=== PATIENT | female | born 1965 | race African-American/Black ===

== ENCOUNTER 2018-09-27 12:18 | Emergency (ER) | payer MEDICARE, MEDICAID ==
[~2018-09-27] VITALS: Ht 149.9 cm; Wt 70.9 kg
[~2018-09-27 12:18] MED LIST: ALPR1TAB6 PO; CITA20TA6 PO; DAPS60GE TP; GABA-689 PO; HYDR-2765 PO; HYDR200T5 PO; LAMI1TAB2 PO; LANS30TA6 PO; LEVE500T6 PO; LIDO700A4 TP; LOPI1TAB2 PO; MIDO2.5T PO; OLAN10TA9 PO; OLAN20TA3 PO; PROC5TAB14 PO; SIMV20TA3 PO; SULF500T7 PO; TOPI50TA8 PO; ZOLP10TA4 PO
--- NOTE | 2018-09-27 13:19 | RAD ---
Chest, PA and Lateral: Technique: PA and lateral views of the chest were obtained. History: Chest pain. Comparison: 09/13/2014. Findings: The heart and pulmonary vasculature appear within normal limits. The lungs are clear. The pleural margins are clear. Impression: No acute chest process is seen. Electronically signed by: Tomas Arguello MD (09/27/2018 1:16 PM) [facility]
[2018-09-27 13:23] LABS: BASO % 0 % (0-3); EOS % 1 % (0-3); HEMATOCRIT 36.1 % (36.0-47.0); HEMOGLOBIN 11.5 g/dL (12.0-15.5); LYMPH # 0.9 x10^3/uL (1.0-4.8); LYMPH % 17 % (24-48); MEAN CORPUSCULAR HEMOGLOBIN 26 pg (25-35); MEAN CORPUSCULAR HGB CONC 32 g/dL (31-37); MEAN CORPUSCULAR VOLUME 80 fL (79-100); MONO # 0.3 x10^3/uL (0.0-1.1); MONO % 5 % (0-9); NEUT % 77 % (31-73); PLATELET COUNT 208 x10^3/uL (140-400); RED BLOOD COUNT 4.51 x10^6/uL (3.50-5.40); RED CELL DISTRIBUTION WIDTH 16.4 % (11.5-14.5); WHITE BLOOD COUNT 5.2 x10^3/uL (4.0-11.0)
--- NOTE | 2018-09-27 13:30 | PHYS DOC ---
Past Medical History Past Medical History: Anxiety, Bipolar, Depression, Diabetes-Type II, Fibromyalgia, Seizure, Other Additional Past Medical Histor: HIV, chronic pelvic and leg pain Past Surgical History: Hysterectomy, Knee Replacement Additional Past Surgical Histo: Bilateral knees. Alcohol Use: None Drug Use: None Adult General Chief Complaint Chief Complaint: CHEST PAIN HPI HPI Patient is a 53 year old female who presents with complaining of right sided chest pain. Patient complaining of intermittent episodes of right-sided chest pain for the last 2 months that getting constant since yesterday. Patient states the pain is sharp pain with radiation to her back and associated with shortness of breath and rated her pain 7/10. She denies nausea, palpitation, dizziness, focal neuro deficit, injury, history of DVT and PE. Patient states she feels the pain is in her breasts and wants test for her breasts. Patient has history of diabetes and family history of coronary artery disease. Review of Systems Review of Systems Constitutional: Denies fever or chills [] Eyes: Denies change in visual acuity, redness, or eye pain [] HENT: Denies nasal congestion or sore throat [] Respiratory: Denies cough, reports shortness of breath [] Cardiovascular: No additional information not addressed in HPI [] GI: Denies abdominal pain, nausea, vomiting, bloody stools or diarrhea [] : Denies dysuria or hematuria [] Musculoskeletal: Denies back pain or joint pain [] Integument: Denies rash or skin lesions [] Neurologic: Denies headache, focal weakness or sensory changes [] Endocrine: Denies polyuria or polydipsia [] All other systems were reviewed and found to be within normal limits, except as documented in this note. Current Medications Current Medications Current Medications Medications (Trade) Dose Ordered Sig/Alka Start Time Stop Time Status Last Admin Dose Admin Acetaminophen/ Hydrocodone Bitart (Lortab 5/325) 1 tab 1X ONCE 09/27/18 14:45 09/27/18 14:46 DC 09/27/18 15:12 1 TAB Info (CONTRAST GIVEN -- Rx MONITORING) 1 each PRN DAILY PRN 09/27/18 14:30 09/27/18 15:50 DC Iohexol (Omnipaque 350 Mg/ml) 100 ml 1X ONCE 09/27/18 14:30 09/27/18 14:31 DC Ketorolac Tromethamine (Toradol 30mg Vial) 30 mg 1X ONCE 09/27/18 14:15 09/27/18 14:16 DC 09/27/18 14:18 30 MG Allergies Allergies Allergies Coded Allergies Type Severity Reaction Last Updated Verified amoxicillin Allergy Intermediate Rash 05/27/14 No Physical Exam Physical Exam Constitutional: Well nourished, mild distress, non-toxic appearance. [] HENT: Normocephalic, atraumatic, oropharynx moist. Eyes: PERRLA, EOMI, conjunctiva normal, no discharge. [] Neck: Normal range of motion, no tenderness, supple, no stridor. [] Cardiovascular:Heart rate regular rhythm, no murmur [] Lungs & Thorax: Bilateral breath sounds clear to auscultation , right chest wall reproducible pain, bilateral breast exam did not show any palpable masses.[] Abdomen: Bowel sounds normal, soft, no tenderness, no masses, no pulsatile masses. [] Skin: Warm, dry, no erythema, no rash in right breast and left hemithorax up to midline with small blister matching with herpetic rash Back: No tenderness, no CVA tenderness. [] Extremities: No tenderness, no cyanosis, no clubbing, ROM intact, no edema. [] Neurologic: Alert and oriented X 3, normal motor function, normal sensory function, no focal deficits noted. [] Psychologic: Affect normal, judgement normal, mood normal. [] Current Patient Data Vital Signs Vital Signs Date Time Temp Pulse Resp B/P (MAP) Pulse Ox O2 Delivery O2 Flow Rate FiO2 09/27/18 15:30 72 18 117/76 (90) 97 Room Air 09/27/18 12:20 97.9 97.9 Lab Values Laboratory Tests Test 09/27/18 13:00 White Blood Count 5.2 x10^3/uL (4.0-11.0) Red Blood Count 4.51 x10^6/uL (3.50-5.40) Hemoglobin 11.5 g/dL (12.0-15.5) L Hematocrit 36.1 % (36.0-47.0) Mean Corpuscular Volume 80 fL (79-100) Mean Corpuscular Hemoglobin 26 pg (25-35) Mean Corpuscular Hemoglobin Concent 32 g/dL (31-37) Red Cell Distribution Width 16.4 % (11.5-14.5) H Platelet Count 208 x10^3/uL (140-400) Neutrophils (%) (Auto) 77 % (31-73) H Lymphocytes (%) (Auto) 17 % (24-48) L Monocytes (%) (Auto) 5 % (0-9) Eosinophils (%) (Auto) 1 % (0-3) Basophils (%) (Auto) 0 % (0-3) Neutrophils # (Auto) 4.0 x10^3uL (1.8-7.7) Lymphocytes # (Auto) 0.9 x10^3/uL (1.0-4.8) L Monocytes # (Auto) 0.3 x10^3/uL (0.0-1.1) Eosinophils # (Auto) 0.0 x10^3/uL (0.0-0.7) Basophils # (Auto) 0.0 x10^3/uL (0.0-0.2) Prothrombin Time 13.9 SEC (11.7-14.0) Prothrombin Time INR 1.1 (0.8-1.1) D-Dimer (Lore) 1.18 ug/mlFEU (0.00-0.50) H Sodium Level 138 mmol/L (136-145) Potassium Level 3.6 mmol/L (3.5-5.1) Chloride Level 102 mmol/L (98-107) Carbon Dioxide Level 25 mmol/L (21-32) Anion Gap 11 (6-14) Blood Urea Nitrogen 4 mg/dL (7-20) L Creatinine 1.1 mg/dL (0.6-1.0) H Estimated GFR (Cockcroft-Gault) 63.4 BUN/Creatinine Ratio 4 (6-20) L Glucose Level 113 mg/dL (70-99) H Calcium Level 9.1 mg/dL (8.5-10.1) Magnesium Level 1.7 mg/dL (1.8-2.4) L Total Bilirubin 0.3 mg/dL (0.2-1.0) Aspartate Amino Transferase (AST) 33 U/L (15-37) Alanine Aminotransferase (ALT) 24 U/L (14-59) Alkaline Phosphatase 113 U/L (46-116) Creatine Kinase 150 U/L (26-192) Troponin I Quantitative < 0.017 ng/mL (0.000-0.055) SI-Pvp-P-Type Natriuretic Peptide 52 pg/mL (0-124) Total Protein 8.6 g/dL (6.4-8.2) H Albumin 3.7 g/dL (3.4-5.0) Albumin/Globulin Ratio 0.8 (1.0-1.7) L Lipase 68 U/L (73-393) L Laboratory Tests 09/27/18 13:00 Laboratory Tests 09/27/18 13:00 EKG EKG EKG interpreted by me. EKG at 1227 showed sinus tachycardia at rate of 101, low voltage QRS, normal OH and QT intervals, poor R-wave progress in anteroseptal leads, no acute ST and T-wave abnormalities. Radiology/Procedures Radiology/Procedures [address] [id number] IMAGING REPORT Signed PATIENT: PHILLIP GONZALEZ ACCOUNT: [id number] : 1965 LOCATION: ER AGE: 53 SEX: F EXAM STATUS: REG ER ORD. PHYSICIAN: VIJAYA OLIVAREZ MD REASON: chest pain PROCEDURE: CHEST PA & LATERAL Chest, PA and Lateral: Technique: PA and lateral views of the chest were obtained. History: Chest pain. Comparison: 09/13/2014. Findings: The heart and pulmonary vasculature appear within normal limits. The lungs are clear. The pleural margins are clear. Impression: No acute chest process is seen. Electronically signed by: Tomas Arguello MD (09/27/2018 1:16 PM) [facility] DICTATED and SIGNED BY: TOMAS ARGUELLO MD DATE: 09/27/[address] [id number] IMAGING REPORT Signed PATIENT: PHILLIP GONZALEZ ACCOUNT: [id number] : 1965 LOCATION: ER AGE: 53 SEX: F EXAM STATUS: REG ER ORD. PHYSICIAN: VIJAYA OLIVAREZ MD REASON: right-sided chest pain PROCEDURE: ABDOMEN LTD Examination: Ultrasound abdomen limited HISTORY: History of right-sided pain COMPARISON: 08/28/2013 FINDINGS: The pancreas is not well-visualized. The echogenicity liver grossly appears unremarkable. The liver length measures 13 cm. The visualized aorta, IVC within normal limits of dimension. No evidence of gallstones identified. The gallbladder wall thickness measures 2 mm. There is positive ultrasonographic evidence of Pitts's sign. No evidence of pericholecystic fluid or gallbladder wall thickening identified. In the right kidney measures 9.1 cm in length. IMPRESSION: No obvious gallstones evident. Examination is positive for ultrasonographic evidence of Pitts's sign, however no evidence of pericholecystic fluid or gallbladder wall thickening identified to suggest acute cholecystitis. Electronically signed by: Tomas Arguello MD (09/27/2018 2:21 PM) [facility] DICTATED and SIGNED BY: TOMAS ARGUELLO MD DATE: 09/27/18 142 Course & Med Decision Making Course & Med Decision Making Pertinent Labs and Imaging studies reviewed. (See chart for details) Evaluation of patient in ER showed 53-year-old female patient with complaining of intermittent episodes of right-sided chest pain that getting constant since yesterday. Patient had a herpetic rash and right breast and posterior hemithorax and stated she had the rash since yesterday. D-dimer was mildly elevated because of infection with no concern for PE. Patient treated with Toradol and Vicodin and felt better. Prescription for acyclovir and Levaquin was given and patient was advised to follow up with her infectious disease specialist regarding HIV and episode of shingles. I've spoken with the patient and/or caregivers. I've explained the patient's condition, diagnosis and treatment plan based on information available to me at this time. I've answered the patient's and/or caregivers questions and addressed any concerns. The patient and/or caregivers have a good understanding the patient's diagnosis, condition and treatment plan as can be expected at this point. Vital signs have been stabilized. The patient's condition is stable for discharge from the emergency department. The patient will pursue further outpatient evaluation with her primary care provider or other designated consulting physician as outlined in the discharge instructions. Patient and/or caregivers are agreeable to this plan of care and follow-up instructions have been explained in detail. The patient and/or caregivers have received these instructions in written format and expressed understanding of these discharge instructions. The patient and her caregivers are aware that if any significant change in condition or worsening of symptoms should prompt him to immediately return to this of the closest emergency department. If an emergent department is not readily available I would encourage him to call 911. Dragon Disclaimer Dragon Disclaimer This electronic medical record was generated, in whole or in part, using a voice recognition dictation system. Departure Departure Impression: Primary Impression: Shingles Additional Impressions: Right-sided chest wall pain Elevated d-dimer HIV (human immunodeficiency virus infection) Anemia Hypomagnesemia Disposition: HOME, SELF-CARE (at 1551) Condition: IMPROVED Referrals: RYANN HAND MD (PCP) Patient Instructions: Hypomagnesemia, Shingles Additional Instructions: Follow-up with your infectious diseases specialist Dr. Starr in 2 or 3 days Follow-up with your primary care physician in 3-5 days Return to ER if not getting better Scripts Hydrocodone/Apap 5-325 (NORCO 5-325 TABLET) 1 Each Tablet 1 TAB PO PRN Q6HRS PRN for PAIN, #14 TAB 0 Refills Prov: VIJAYA OLIVAREZ MD 09/27/18 Acyclovir (ACYCLOVIR) 800 Mg Tablet 1 TAB PO Q8HRS, #15 TAB Prov: VIJAYA OLIVAREZ MD 09/27/18 Problem Qualifiers Primary Impression: Shingles Herpes zoster complications: without complications Qualified Codes: B02.9 - Zoster without complications Additional Impressions: HIV (human immunodeficiency virus infection) HIV symptom status: asymptomatic Qualified Codes: Z21 - Asymptomatic human immunodeficiency virus [hiv] infection status Anemia Anemia type: unspecified type Qualified Codes: D64.9 - Anemia, unspecified VIJAYA OLIVAREZ MD September 27, 2018 13:30
[2018-09-27 13:31] LABS: PROTHROMBIN TIME PATIENT 13.9 SEC (11.7-14.0)
[2018-09-27 13:35] LABS: CALCIUM 9.1 mg/dL (8.5-10.1); CREATININE 1.1 mg/dL (0.6-1.0); GFR 63.4; POTASSIUM 3.6 mmol/L (3.5-5.1)
[2018-09-27 13:41] LABS: D-DIMER 1.18 ug/mlFEU (0.00-0.50)
[2018-09-27 13:42] LABS: ALBUMIN 3.7 g/dL (3.4-5.0); ALBUMIN/GLOBULIN RATIO 0.8 (1.0-1.7); MAGNESIUM 1.7 mg/dL (1.8-2.4); TOTAL BILIRUBIN 0.3 mg/dL (0.2-1.0); TOTAL PROTEIN 8.6 g/dL (6.4-8.2)
[2018-09-27] MEDS ORDERED: KETOROLAC 30 MG/ML VIAL. IV ONE (14:15)
--- NOTE | 2018-09-27 14:23 | RAD ---
Examination: Ultrasound abdomen limited HISTORY: History of right-sided pain COMPARISON: 08/28/2013 FINDINGS: The pancreas is not well-visualized. The echogenicity liver grossly appears unremarkable. The liver length measures 13 cm. The visualized aorta, IVC within normal limits of dimension. No evidence of gallstones identified. The gallbladder wall thickness measures 2 mm. There is positive ultrasonographic evidence of Pitts's sign. No evidence of pericholecystic fluid or gallbladder wall thickening identified. In the right kidney measures 9.1 cm in length. IMPRESSION: No obvious gallstones evident. Examination is positive for ultrasonographic evidence of Pitts's sign, however no evidence of pericholecystic fluid or gallbladder wall thickening identified to suggest acute cholecystitis. Electronically signed by: Tomas Arguello MD (09/27/2018 2:21 PM) [facility]
[2018-09-27] MEDS ORDERED: CONTRAST GIVEN. MC PRN (14:30)
[2018-09-27] MEDS ORDERED: IOHEXOL 350 MG/ML 100 ML VIAL. IV ONE (14:30)
[2018-09-27] MEDS ORDERED: HYDROcodone/APAP 5/325MG 1 TAB TABLET PO ONE (14:45)
[2018-09-27 15:30] VITALS: BP 117/76
[2018-09-27] MEDS ORDERED: ACYC800T PO (15:33)
[2018-09-27] MEDS ORDERED: HYDR-3164 PO (15:33)
--- NOTE | 2018-09-28 11:06 | EKG ---
[facility] [address] [place] [address] Test Date: 2018-09-27 Test Time: 12:27:09 Pat Name: PHILLIP GONZALEZ Department: Room: Gender: F [employer] [place]: : 1965 Requested By: VIJAYA OLIVAREZ Order Number: [id number] Reading MD: Addison Ortiz Measurements Intervals [place] Rate: 101 P: 53 MT: 164 QRS: 36 QRSD: 68 T: 35 QT: 310 QTc: 407 Interpretive Statements SINUS TACHYCARDIA LOW LIMB LEAD VOLTAGE T ABNORMALITY IN ANTERIOR LEADS NON SPECIFIC ST DEPRESSION Electronically Signed On 10-17-2018 12:41:44 CDT by Addison Ortiz
== END 2018-09-27 15:31 | disposition home or self-care (01) ==
LOC: ER 12:18
DX: R07.89 Other chest pain (principal); D64.9 Anemia, unspecified; E83.42 Hypomagnesemia; B02.9 Zoster without complications; R79.1 Abnormal coagulation profile; Z21 Asymptomatic human immunodeficiency virus [HIV] infection status; F31.9 Bipolar disorder, unspecified; E11.9 Type 2 diabetes mellitus without complications; Z90.710 Acquired absence of both cervix and uterus; G89.29 Other chronic pain; Z88.1 Allergy status to other antibiotic agents
CPT/HCPCS: 36415; 71046; 76705; 80053; 82550; 83690; 83735; 83880; 84484; 85025; 85379; 85610; 93005; 96374; 99285; J1885

== ENCOUNTER 2019-05-27 17:59 | Emergency (ER) | payer MEDICAID, MEDICARE ==
[~2019-05-27] VITALS: Ht 149.9 cm; Wt 64.4 kg
[~2019-05-27 17:59] MED LIST changes: +ACYC800T PO; +HYDR-3164 PO; +SIMV20TA18 PO; -SIMV20TA3 PO
[2019-05-27 18:38] VITALS: BP 113/69
[2019-05-27] MEDS ORDERED: METOCLOPRAMIDE HCL 10 MG/2 ML VIAL. IVP ONE (19:00)
[2019-05-27] MEDS ORDERED: IV NORMAL SALINE 1000ML BAG 1,000 ML IV ONE (19:00)
--- NOTE | 2019-05-27 20:20 | RAD ---
INDICATION: Dizziness COMPARISON: None. TECHNIQUE: Axial CT images obtained through the head without intravenous contrast. One or more of the following individualized dose reduction techniques were utilized for this examination: 1. Automated exposure control; 2. Adjustment of the mA and/or kV according to patient size; 3. Use of iterative reconstruction technique. FINDINGS: No intracranial hemorrhage. No midline shift. Basal cisterns patents. Subdural space is prominent frontally measuring up to approximately 10 mm in thickness. No acute osseous abnormality. Orbits and paranasal sinuses unremarkable. Scattered foci of low attenuation within the white matter. IMPRESSION: 1. No acute intracranial hemorrhage. 2. Scattered regions of low attenuation within the white matter. Non-specific in nature but frequently secondary to chronic small vessel ischemic disease. 3. Prominence of ventricles and sulci which is frequently secondary to age related volume loss. There is also prominence of the subdural space frontally. This could be secondary to focal volume loss or chronic subdural hygroma. Electronically signed by: Jamal Orozco MD (05/27/2019 8:16 PM) [facility]
[2019-05-27] MEDS ORDERED: PROC10TA57 PO (20:44)
--- NOTE | 2019-05-27 20:44 | PHYS DOC ---
Past Medical History Past Medical History: Anxiety, Bipolar, Depression, Diabetes-Type II, Fib romyalgia, Seizure, Other Additional Past Medical Histor: HIV, chronic pelvic and leg pain Past Surgical History: Hysterectomy, Knee Replacement Additional Past Surgical Histo: Bilateral knees. Alcohol Use: None Drug Use: None Adult General Chief Complaint Chief Complaint: HEADACHE HPI HPI Patient is a 54 year old male with history of HIV and migraine headaches who presents with typical migraine headache starting several hours prior to ED arrival. Headache is retro-orbital dull and throbbing. It is rated moderate to severe and is worse with activity and light. Patient reports nausea without vomiting. No neck pain fever or rash. No extremity weakness or loss of sensation. Patient denies known migraine triggers. She takes Topamax daily for suppression but has not had any abortive medications. No other acute symptoms or complaints. [] Review of Systems Review of Systems ROS as per HPI All other systems were reviewed and found to be within normal limits, except as documented in this note. Current Medications Current Medications Current Medications Medications (Trade) Dose Ordered Sig/Alka Start Time Stop Time Status Last Admin Dose Admin Metoclopramide HCl (Reglan Vial) 10 mg 1X ONCE 05/27/19 19:00 05/27/19 19:01 DC 05/27/19 19:37 10 MG Sodium Chloride 1,000 ml @ 1,000 mls/hr 1X ONCE 05/27/19 19:00 05/27/19 19:59 DC 05/27/19 19:37 1,000 MLS/HR Allergies Allergies Allergies Coded Allergies Type Severity Reaction Last Updated Verified amoxicillin Allergy Intermediate Rash 05/27/14 No Physical Exam Physical Exam Constitutional: Well developed, well nourished, no acute distress, non-toxic appearance. [] HENT: Normocephalic, atraumatic, bilateral external ears normal, oropharynx moist, no oral exudates, nose normal. [] Eyes: PERRLA, EOMI, conjunctiva normal, no discharge. [] Neck: Normal range of motion, no tenderness, supple, no stridor. [] Cardiovascular:Heart rate regular rhythm, no murmur [] Lungs & Thorax: Bilateral breath sounds clear to auscultation [] Abdomen: Bowel sounds normal, soft, no tenderness. [] Skin: Warm, dry, no erythema, no rash. [] Back: No tenderness, no CVA tenderness. [] Extremities: No tenderness, no edema. [] Neurologic: Alert and oriented X 3, cranial nerves II through XII grossly intact, normal motor function, normal sensory function, no focal deficits noted. [] Psychologic: Affect normal, judgement normal, mood normal. [] Current Patient Data Vital Signs Vital Signs Date Time Temp Pulse Resp B/P (MAP) Pulse Ox O2 Delivery O2 Flow Rate FiO2 05/27/19 18:38 97.9 93 16 113/69 (84) 98 Room Air 97.9 EKG EKG [] Radiology/Procedures Radiology/Procedures [CT head: chronic findings, no acute disease per radiology report] Course & Med Decision Making Course & Med Decision Making Pertinent Labs and Imaging studies reviewed. (See chart for details) [Migraine-like headache. No neurologic deficits. Symptoms improved significant with treatment. Recommend supportive care with PCP follow-up. Return precautions reviewed. Dragon Disclaimer Dragon Disclaimer This electronic medical record was generated, in whole or in part, using a voice recognition dictation system. Departure Departure Impression: Primary Impression: Migraine Disposition: HOME, SELF-CARE Condition: IMPROVED Referrals: UNKNOWN PCP NAME (PCP) Patient Instructions: Recurrent Migraine Headache Additional Instructions: You were evaluated emergency department for headache. The CT scan was performed and is nondiagnostic but will require follow-up with your primary care physician or neurologist for further review. Please take Excedrin Migraine as needed for continued headache and Compazine as needed for additional relief. Follow-up with your PCP and/or neurologist in the next 3-5 days. Return to the ED if new or worsening symptoms`. Scripts Prochlorperazine Maleate (Compazine) 10 Mg Tablet 1 TAB PO Q6HRS for 3 Days, #10 TAB 0 Refills Prov: JERONIMO HAND DO 05/27/19 JERONIMO HAND DO May 27, 2019 20:44
[2019-05-27] MEDS ORDERED: diphenhydrAMINE 50 MG/ML VIAL IVP ONE (21:00)
[2019-05-27] MEDS ORDERED: KETOROLAC 30 MG/ML VIAL. IVP ONE (21:00)
--- NOTE | 2019-05-28 07:32 | EKG ---
[facility] [address] [place] [address] Test Date: 2019-05-27 Test Time: 19:06:46 Pat Name: PHILLIP GONZALEZ Department: Room: Gender: F Board Catcher: : 1965 Requested By: JERONIMO HAND Order Number: [id number] Reading MD: Measurements Intervals [place] Rate: 75 P: 26 MS: 170 QRS: 14 QRSD: 70 T: 24 QT: 434 QTc: 493 Interpretive Statements SINUS RHYTHM POSSIBLE LEFT ATRIAL ABNORMALITY NON SPECIFIC T ABNORMALITY PROLONGED QT POSSIBLY ABNORMAL ECG No previous ECG available for comparison
== END 2019-05-27 21:56 | disposition home or self-care (01) ==
LOC: ER 17:59
DX: G43.909 Migraine, unspecified, not intractable, without status migrainosus (principal); R42 Dizziness and giddiness; E11.9 Type 2 diabetes mellitus without complications; F31.9 Bipolar disorder, unspecified; F41.9 Anxiety disorder, unspecified; Z88.1 Allergy status to other antibiotic agents
CPT/HCPCS: 70450; 93005; 96361; 96374; 96375; 99285; J1200; J1885; J2765; J7030

== ENCOUNTER 2019-07-04 22:24 | Emergency (ER) | payer MEDICARE ==
[~2019-07-04] VITALS: Ht 149.9 cm; Wt 77.2 kg
[~2019-07-04 22:24] MED LIST changes: +PROC10TA57 PO
[2019-07-04 23:15] LABS: BASO % 0 % (0-3); EOS # 0.1 x10^3/uL (0.0-0.7); EOS % 1 % (0-3); HEMATOCRIT 36.7 % (36.0-47.0); LYMPH # 2.3 x10^3/uL (1.0-4.8); LYMPH % 26 % (24-48); MEAN CORPUSCULAR HEMOGLOBIN 27 pg (25-35); MEAN CORPUSCULAR HGB CONC 33 g/dL (31-37); MEAN CORPUSCULAR VOLUME 81 fL (79-100); MONO # 0.6 x10^3/uL (0.0-1.1); MONO % 7 % (0-9); NEUT # 5.9 x10^3/uL (1.8-7.7); NEUT % 67 % (31-73); PLATELET COUNT 256 x10^3/uL (140-400); RED BLOOD COUNT 4.51 x10^6/uL (3.50-5.40); RED CELL DISTRIBUTION WIDTH 16.7 % (11.5-14.5); WHITE BLOOD COUNT 8.8 x10^3/uL (4.0-11.0)
[2019-07-04] MEDS ORDERED: IV NORMAL SALINE 1000ML BAG 1,000 ML IV ONE (23:30)
[2019-07-04 23:33] LABS: CALCIUM 9.5 mg/dL (8.5-10.1); CREATININE 1.3 mg/dL (0.6-1.0); POTASSIUM 3.7 mmol/L (3.5-5.1); PROTHROMBIN TIME PATIENT 13.5 SEC (11.7-14.0)
[2019-07-04 23:40] LABS: D-DIMER 0.46 ug/mlFEU (0.00-0.50)
[2019-07-04 23:40] LABS: INFLUENZA A PATIENT NEGATIVE (NEGATIVE); INFLUENZA B PATIENT NEGATIVE (NEGATIVE)
[2019-07-04 23:53] LABS: ALBUMIN 3.6 g/dL (3.4-5.0); ALBUMIN/GLOBULIN RATIO 0.7 (1.0-1.7); MAGNESIUM 2.1 mg/dL (1.8-2.4); TOTAL BILIRUBIN 0.4 mg/dL (0.2-1.0); TOTAL PROTEIN 8.5 g/dL (6.4-8.2)
--- NOTE | 2019-07-05 00:03 | PHYS DOC ---
Past Medical History Past Medical History: Anxiety, Bipolar, Depression, Diabetes-Type II, Fibromyalgia, Seizure, Other Additional Past Medical Histor: HIV, chronic pelvic and leg pain, lupus Past Surgical History: Hysterectomy, Knee Replacement Additional Past Surgical Histo: Bilateral knees. Smoking Status: Never Smoker Alcohol Use: None Drug Use: None Adult General Chief Complaint Chief Complaint: WEAKNESS/GENERALIZED HPI HPI Patient is a 54 year old female with history of diabetes mellitus, fibromyalgia, bipolar disorder, anxiety and depression,HIV, chronic pelvic and leg pain, lupus who presents with complaint of "I cannot talk". Patient states she has generalized weakness for the last 2 months that gradually getting worse and cannot talk or walk. Patient complaining of shortness of breath with yellow sputum for the last 2 months without fever and chills, chest pain, nausea and vomiting, headache, focal neuro deficit, diarrhea and constipation, urinary symptom. Patient states she was seen by his HIV physician 1 month ago regarding the problem but did not get any special treatment. Patient denies suicidal or homicidal ideation eye using drugs and alcohol. Review of Systems Review of Systems Constitutional: Denies fever or chills [] Eyes: Denies change in visual acuity, redness, or eye pain [] HENT: Denies nasal congestion or sore throat [] Respiratory: Reports cough and shortness of breath Cardiovascular: No additional information not addressed in HPI [] GI: Denies abdominal pain, nausea, vomiting, bloody stools or diarrhea [] : Denies dysuria or hematuria [] Musculoskeletal: Denies back pain or joint pain [] Integument: Denies rash or skin lesions [] Neurologic: Denies headache, focal weakness or sensory changes , reports generalized weakness[] Endocrine: Denies polyuria or polydipsia [] All other systems were reviewed and found to be within normal limits, except as documented in this note. Current Medications Current Medications Current Medications Medications (Trade) Dose Ordered Sig/Alka Start Time Stop Time Status Last Admin Dose Admin Sodium Chloride 1,000 ml @ 1,000 mls/hr 1X ONCE 07/04/19 23:30 07/05/19 00:29 DC 07/04/19 23:15 1,000 MLS/HR Allergies Allergies Allergies Coded Allergies Type Severity Reaction Last Updated Verified amoxicillin Allergy Intermediate Rash 05/27/14 No Physical Exam Physical Exam Constitutional: Well nourished, mild distress, non-toxic appearance, patient talks very slow with a soft voice HENT: Normocephalic, atraumatic, bilateral external ears normal, oropharynx moist, no oral exudates, nose normal. [] Eyes: PERRLA, EOMI, conjunctiva normal, no discharge. [] Neck: Normal range of motion, no tenderness, supple, no stridor. [] Cardiovascular:Heart rate regular rhythm, no murmur [] Lungs & Thorax: Bilateral breath sounds clear to auscultation [] Abdomen: Bowel sounds normal, soft, no tenderness, no masses, no pulsatile masses. [] Skin: Warm, dry, no erythema, no rash. [] Back: No tenderness, no CVA tenderness. [] Extremities: No tenderness, no cyanosis, no clubbing, ROM intact, no edema. [] Neurologic: Alert and oriented X 3, normal motor function, normal sensory function, no focal deficits noted. [] Psychologic: Affect is depressed, mood normal. [] Current Patient Data Vital Signs Vital Signs Date Time Temp Pulse Resp B/P (MAP) Pulse Ox O2 Delivery O2 Flow Rate FiO2 07/05/19 00:44 89 18 100 07/04/19 22:30 98.3 119/81 (94) Room Air 98.3 Lab Values Laboratory Tests Test 07/04/19 22:50 07/04/19 23:15 White Blood Count 8.8 x10^3/uL (4.0-11.0) Red Blood Count 4.51 x10^6/uL (3.50-5.40) Hemoglobin 12.0 g/dL (12.0-15.5) Hematocrit 36.7 % (36.0-47.0) Mean Corpuscular Volume 81 fL (79-100) Mean Corpuscular Hemoglobin 27 pg (25-35) Mean Corpuscular Hemoglobin Concent 33 g/dL (31-37) Red Cell Distribution Width 16.7 % (11.5-14.5) H Platelet Count 256 x10^3/uL (140-400) Neutrophils (%) (Auto) 67 % (31-73) Lymphocytes (%) (Auto) 26 % (24-48) Monocytes (%) (Auto) 7 % (0-9) Eosinophils (%) (Auto) 1 % (0-3) Basophils (%) (Auto) 0 % (0-3) Neutrophils # (Auto) 5.9 x10^3/uL (1.8-7.7) Lymphocytes # (Auto) 2.3 x10^3/uL (1.0-4.8) Monocytes # (Auto) 0.6 x10^3/uL (0.0-1.1) Eosinophils # (Auto) 0.1 x10^3/uL (0.0-0.7) Basophils # (Auto) 0.0 x10^3/uL (0.0-0.2) Prothrombin Time 13.5 SEC (11.7-14.0) Prothrombin Time INR 1.1 (0.8-1.1) Activated Partial Thromboplast Time 28 SEC (24-38) D-Dimer (Lore) 0.46 ug/mlFEU (0.00-0.50) Sodium Level 139 mmol/L (136-145) Potassium Level 3.7 mmol/L (3.5-5.1) Chloride Level 104 mmol/L (98-107) Carbon Dioxide Level 20 mmol/L (21-32) L Anion Gap 15 (6-14) H Blood Urea Nitrogen 10 mg/dL (7-20) Creatinine 1.3 mg/dL (0.6-1.0) H Estimated GFR (Cockcroft-Gault) 52.0 BUN/Creatinine Ratio 8 (6-20) Glucose Level 110 mg/dL (70-99) H Lactic Acid Level 1.0 mmol/L (0.4-2.0) Calcium Level 9.5 mg/dL (8.5-10.1) Magnesium Level 2.1 mg/dL (1.8-2.4) Total Bilirubin 0.4 mg/dL (0.2-1.0) Aspartate Amino Transferase (AST) 39 U/L (15-37) H Alanine Aminotransferase (ALT) 17 U/L (14-59) Alkaline Phosphatase 111 U/L (46-116) Creatine Kinase 1135 U/L (26-192) H Troponin I Quantitative < 0.017 ng/mL (0.000-0.055) VI-Ria-O-Type Natriuretic Peptide 28 pg/mL (0-124) Total Protein 8.5 g/dL (6.4-8.2) H Albumin 3.6 g/dL (3.4-5.0) Albumin/Globulin Ratio 0.7 (1.0-1.7) L Lipase 117 U/L (73-393) Thyroid Stimulating Hormone (TSH) 2.858 uIU/mL (0.358-3.74) Influenza Type A Antigen Negative (NEGATIVE) Influenza Type B Antigen Negative (NEGATIVE) Laboratory Tests 07/04/19 22:50 Laboratory Tests 07/04/19 22:50 EKG EKG [] Radiology/Procedures Radiology/Procedures [facility] [address] [place] [address] IMAGING REPORT Signed PATIENT: PHILLIP GONZALEZ: [id number] : 1965 LOCATION: ER AGE: 54 SEX: F EXAM STATUS: REG ER ORD. PHYSICIAN: VIJAYA OLIVAREZ MD REASON: HIV, generalized weakness PROCEDURE: CT HEAD WO CONTRAST CT head without contrast dated 07/04/2019. Comparison made to 05/27/2019. CLINICAL INDICATION: Generalized weakness. TECHNIQUE: Contiguous axial imaging the head was performed from skull base to vertex. One or more of the following individualized dose reduction techniques were utilized for this examination: 1. Automated exposure control 2. Adjustment of the mA and/or kV according to patient size 3. Use of iterative reconstruction technique. FINDINGS: Ventricles and sulci are mildly prominent for age. No midline shift or mass effect. Minimal patchy low density in the deep/subcortical periventricular white matter. No hemorrhage or extra axial collection. Posterior fossa and brainstem unremarkable. Mild mucosal thickening of the bilateral ethmoid air cells and right sphenoid sinus. Mastoid air cells are clear. No apparent calvarial abnormality. IMPRESSION: 1. No evidence of acute intracranial hemorrhage or mass. 2. Mild chronic small vessel ischemic changes and atrophy. 3. Mild sinus disease. Electronically signed by: Temo Allan MD (07/05/2019 12:00 AM) [id number] DICTATED and SIGNED BY: TEMO ALLAN MD [facility] [address] [place] [address] IMAGING REPORT Signed PATIENT: PHILLIP GONZALEZ: [id number] : 1965 LOCATION: ER AGE: 54 SEX: F EXAM STATUS: REG ER ORD. PHYSICIAN: VIJAYA OLIVAREZ MD REASON: generalized weakness PROCEDURE: PORTABLE CHEST 1V EXAM: CHEST ONE VIEW. HISTORY: Generalized weakness. COMPARISON: 09/27/2018. FINDINGS: A frontal view of the chest is obtained. There are no confluent infiltrates. There is no pneumothorax or pleural effusion. The heart is not enlarged. IMPRESSION: 1. No confluent infiltrates. Electronically signed by: Estuardo Alford MD (07/05/2019 12:11 AM) [id number] DICTATED and SIGNED BY: JEANINE ALFORD MD DATE: 07/05/1910 Course & Med Decision Making Course & Med Decision Making Pertinent Labs and Imaging studies reviewed. (See chart for details) Evaluation of patient in ER showed 54-year-old female patient with history of HIV and diabetes mellitus and complaining of generalized weakness for more than 2 months. Labs showed elevation of CK with history of fibromyalgia. Patient treated with IV fluid. Patient was very depressed in ER and denied suicidal or homicidal ideation. Patient was advised to follow-up with his HIV physician and primary care physician for possible referral to psychiatric. She was advised to increase fluid intake. I've spoken with the patient and/or caregivers. I've explained the patient's condition, diagnosis and treatment plan based on information available to me at this time. I've answered the patient's and/or caregivers questions and addressed any concerns. The patient and/or caregivers have a good understanding the patient's diagnosis, condition and treatment plan as can be expected at this point. Vital signs have been stabilized. The patient's condition is stable for discharge from the emergency department. The patient will pursue further outpatient evaluation with her primary care provider or other designated consulting physician as outlined in the discharge instructions. Patient and/or caregivers are agreeable to this plan of care and follow-up instructions have been explained in detail. The patient and/or caregivers have received these instructions in written format and expressed understanding of these discharge instructions. The patient and her caregivers are aware that if any significant change in condition or worsening of symptoms should prompt him to immediately return to this of the closest emergency department. If an emergent department is not readily available I would encourage him to call 911. Kristopher Disclaimer Shadyon Disclaimer This electronic medical record was generated, in whole or in part, using a voice recognition dictation system. Departure Departure Impression: Primary Impression: Depression Additional Impressions: Generalized weakness History of HIV infection Rhabdomyolysis Renal insufficiency Disposition: HOME, SELF-CARE (at 0030) Condition: STABLE Referrals: UNKNOWN PCP NAME (PCP) Patient Instructions: Depression, Adult, Rhabdomyolysis Additional Instructions: Drink plenty of liquids Follow-up with your HIV physician in 2-3 days Return to ER if not getting better Continue current medication Thank you for visiting . We appreciate you trusting us with your care. If any additional problems come up don't hesitate to return to visit us. Please follow up with your primary care provider so they can plan additional care if needed and know about the problem that you had. If symptoms worsen come back to the Emergency Department. Any concerning symptoms that start such as chest pain, shortness of air, weakness or numbness on one side of the body, running high fevers or any other concerning symptoms return to the ER. Problem Qualifiers Primary Impression: Depression Depression Type: unspecified Qualified Codes: F32.9 - Major depressive disorder, single episode, unspecified Additional Impressions: Rhabdomyolysis Rhabdomyolysis type: non-traumatic Qualified Codes: M62.82 - Rhabdomyolysis VIJAYA OLIVAREZ MD Jul 05, 2019 00:03
--- NOTE | 2019-07-05 00:14 | RAD ---
EXAM: CHEST ONE VIEW. HISTORY: Generalized weakness. COMPARISON: 09/27/2018. FINDINGS: A frontal view of the chest is obtained. There are no confluent infiltrates. There is no pneumothorax or pleural effusion. The heart is not enlarged. IMPRESSION: 1. No confluent infiltrates. Electronically signed by: Estuardo Alford MD (07/05/2019 12:11 AM) [id number]
[2019-07-05 00:44] VITALS: BP 120/68
[2019-07-05] MEDS ORDERED: DOLU50TA PO (21:34)
[2019-07-05] MEDS ORDERED: EMTR1TAB12 PO (21:34)
== END 2019-07-05 00:43 | disposition home or self-care (01) ==
LOC: ER 22:24
DX: M62.82 Rhabdomyolysis (principal); F32.9 Major depressive disorder, single episode, unspecified; N28.9 Disorder of kidney and ureter, unspecified; F41.9 Anxiety disorder, unspecified; E11.9 Type 2 diabetes mellitus without complications; Z90.710 Acquired absence of both cervix and uterus; Z88.1 Allergy status to other antibiotic agents
CPT/HCPCS: 36415; 70450; 71045; 80053; 82550; 83605; 83690; 83735; 83880; 84443; 84484; 85025; 85379; 85610; 85730; 87040; 87804; 99285; J7030

== ENCOUNTER 2019-08-03 14:44 | Emergency (ER) | payer MEDICARE ==
[~2019-08-03] VITALS: Ht 149.9 cm; Wt 69.0 kg
[~2019-08-03 14:44] MED LIST changes: +DOLU50TA PO; +EMTR1TAB12 PO; +MAGN400O7 PO; +PRED20TA PO
[2019-08-03 15:07] VITALS: BP 132/90
--- NOTE | 2019-08-03 16:00 | PHYS DOC ---
Past Medical History Past Medical History: Anxiety, Bipolar, Depression, Diabetes-Type II, Fib romyalgia, Seizure, Other Additional Past Medical Histor: HIV, chronic pelvic and leg pain, lupus Past Surgical History: Hysterectomy, Knee Replacement Additional Past Surgical Histo: Bilateral knees. Smoking Status: Never Smoker Alcohol Use: None Drug Use: None Adult General Chief Complaint Chief Complaint: GENERALIZED BODY [facility]CHES [facility] HPI Patient is a 54 year old AA female who presents the emergency department with complaints of body aches and inability to ambulate since yesterday. Patient denies any fever, cough, shortness of breath, nausea, vomiting, diarrhea, abdominal pain, palpitations, chest pain, headache, or dizziness. Patient states that yesterday she was unable to talk, she is not sure why she was unable to talk. Patient states in order to communicate with her daughter yesterday she had to write words down on a piece of paper. Patient states that she felt like her speech was too slurred to be understood yesterday and that is why she could not talk. She currently denies any slurred speech, she states that her voice feels hoarse today. She rates her body aches a 10 out of 10 on the pain scale, she denies any alleviating factors. Review of Systems Review of Systems Complete ROS is negative unless otherwise noted in HPI. Allergies Allergies Allergies Coded Allergies Type Severity Reaction Last Updated Verified amoxicillin Allergy Intermediate Rash 05/27/14 No Physical Exam Physical Exam See Above Constitutional: Well developed, well nourished, no acute distress, non-toxic appearance. [] HENT: Normocephalic, atraumatic, bilateral external ears normal, bilateral TMs normal, oropharynx moist, no oral exudates, nose normal. [] Eyes: PERRLA, EOMI, conjunctiva normal, no discharge. [] Neck: Normal range of motion, no stridor. [] Cardiovascular:Heart rate regular rhythm, no murmur [] Lungs & Thorax: Bilateral breath sounds clear to auscultation, Respirations even and unlabored, no retractions, no respiratory distress [] Skin: Warm, dry, no erythema, no rash. [] Back: No tenderness, Extremities: No tenderness, no cyanosis, no clubbing, ROM intact, no edema; strength of extremities x4 is 5/5[] Neurologic: Alert and oriented X 3, normal motor function, normal sensory function, no focal deficits noted, speech clear, no facial droop, no deviation of tongue. [] Psychologic: Affect normal, judgement normal, mood normal. [] Current Patient Data Vital Signs Vital Signs Date Time Temp Pulse Resp B/P (MAP) Pulse Ox O2 Delivery O2 Flow Rate FiO2 08/03/19 15:07 97.5 103 16 132/90 (104) 98 Room Air 97.5 EKG EKG [] Radiology/Procedures Radiology/Procedures [] Course & Med Decision Making Course & Med Decision Making Pertinent Labs and Imaging studies reviewed. (See chart for details) I advised this patient of concerns that she may have suffered a TIA or stroke yesterday. I notified the patient of the need for a CT of her head and lab work to be done. 1540-the patient reported that she feels like she is okay and that her father wo samanthad come to pick her up, she requested a wheelchair to go out to the waiting room. I explained to the patient that I am not able to rule out a TIA or stroke without the tests that were ordered being done. The patient agreed to stay and have the procedures completed at this time. 1555-patient ambulated out to the waiting room without any assistance. I presented the patient with AMA paperwork in the waiting room and advised her of the risk of a stroke or TIA not being ruled out. Patient signed the AMA form. She was encouraged to return to the emergency room if her symptoms worsen, she was strongly encouraged to follow-up with her primary care doctor as soon as possible. [] Dragon Disclaimer Dragon Disclaimer This electronic medical record was generated, in whole or in part, using a voice recognition dictation system. Departure Departure Impression: Primary Impression: Left against medical advice Disposition: AGAINST MEDICAL ADVICE Condition: STABLE Referrals: UNKNOWN PCP NAME (PCP) YOVANI DAVIS APRN Aug 03, 2019 15:59
== END 2019-08-03 16:04 | disposition left against medical advice (07) ==
LOC: ER 14:44
DX: M79.10 Myalgia, unspecified site (principal); F31.9 Bipolar disorder, unspecified; E11.9 Type 2 diabetes mellitus without complications; G89.29 Other chronic pain; Z88.1 Allergy status to other antibiotic agents
CPT/HCPCS: 99284

== ENCOUNTER 2020-09-17 12:29 | Emergency (ER) | payer MEDICAID, MEDICARE, OTHER ==
[~2020-09-17] VITALS: Ht 149.9 cm; Wt 66.8 kg
[~2020-09-17 12:29] MED LIST changes: -ACYC800T PO; +ACYC800T88 PO
--- NOTE | 2020-09-17 13:04 | PHYS DOC ---
Past Medical History Past Medical History: Anxiety, Bipolar, Depression, Diabetes-Type II, Fib romyalgia, Seizure, Other Additional Past Medical Histor: HIV, chronic pelvic and leg pain, lupus Past Surgical History: Hysterectomy, Knee Replacement Additional Past Surgical Histo: Bilateral knees. Smoking Status: Never Smoker Alcohol Use: None Drug Use: None General Adult EDM: Chief Complaint: ABDOMINAL PAIN HPI: HPI: Patient is a 55 year old female who presented to ER for evaluation of left flank pain that radiates to her left lower abdominal area for 2 days. Patient denies any fever, had nonproductive cough and trouble breathing. Patient has history of HIV. Patient denies any history of kidney stone. Patient denies any urinary frequency or urgency, denies any nausea vomiting. Review of Systems: Review of Systems: Constitutional: Denies fever or chills. [] Eyes: Denies change in visual acuity. [] HENT: Denies nasal congestion or sore throat. [] Respiratory: Positive cough and trouble breathing Cardiovascular: Denies chest pain or edema. [] GI: Positive for left flank pain, no nausea vomiting, no diarrhea, no bloody stool. : Denies dysuria. [] Musculoskeletal: Denies back pain or joint pain. [] Integument: Denies rash. [] Neurologic: Denies headache, focal weakness or sensory changes. [] Endocrine: Denies polyuria or polydipsia. [] Lymphatic: Denies swollen glands. [] Psychiatric: Denies depression or anxiety. [] Heart Score: C/O Chest Pain: N/A Risk Factors: Risk Factors: DM, Current or recent (<one month) smoker, HTN, HLP, family history of CAD, obesity. Risk Scores: Score 0 - 3: 2.5% MACE over next 6 weeks - Discharge Home Score 4 - 6: 20.3% MACE over next 6 weeks - Admit for Clinical Observation Score 7 - 10: 72.7% MACE over next 6 weeks - Early Invasive Strategies Current Medications: Current Medications Medications (Trade) Dose Ordered Sig/Alka Start Time Stop Time Status Last Admin Dose Admin Morphine Sulfate (Morphine Sulfate) 4 mg 1X ONCE 09/17/20 13:00 09/17/20 13:01 UNV Ondansetron HCl (Zofran) 4 mg 1X ONCE 09/17/20 13:00 09/17/20 13:01 UNV Allergies: Allergies: Allergies Coded Allergies Type Severity Reaction Last Updated Verified amoxicillin Allergy Intermediate Rash 05/27/14 No Physical Exam: PE: Constitutional: Well developed, well nourished, no acute distress, non-toxic appearance. [] HENT: Normocephalic, atraumatic, bilateral external ears normal, oropharynx moist, no oral exudates, nose normal. [] Eyes: PERRLA, EOMI, conjunctiva normal, no discharge. [] Neck: Normal range of motion, no tenderness, supple, no stridor. [] Cardiovascular:Heart rate regular rhythm, no murmur [] Lungs & Thorax: Bilateral breath sounds clear to auscultation [] Abdomen: Bowel sounds normal, soft, LUQ tenderness, no masses, no pulsatile masses. [] Skin: Warm, dry, no erythema, no rash. [] Back: No tenderness, LEFT CVA tenderness. [] Extremities: No tenderness, no cyanosis, no clubbing, ROM intact, no edema. [] Neurologic: Alert and oriented X 3, normal motor function, normal sensory function, no focal deficits noted. [] Psychologic: Affect normal, judgement normal, mood normal. [] Current Patient Data: Labs: Laboratory Tests Test 09/17/20 12:59 09/17/20 13:50 09/17/20 15:20 Urine Collection Type Unknown Urine Color Yellow Urine Clarity Clear Urine pH 6.0 Urine Specific [facility] 1.015 Urine Protein Negative mg/dL Urine Glucose (UA) Negative mg/dL Urine Ketones (Stick) Negative mg/dL Urine Blood Large Urine Nitrite Negative Urine Bilirubin Negative Urine Urobilinogen Dipstick 0.2 mg/dL Urine Leukocyte Esterase Small Urine RBC 11-20 /HPF Urine WBC Rare /HPF Urine Squamous Epithelial Cells Few /LPF Urine Bacteria 0 /HPF Sodium Level 139 mmol/L Potassium Level 4.2 mmol/L Chloride Level 103 mmol/L Carbon Dioxide Level 24 mmol/L Anion Gap 12 Blood Urea Nitrogen 7 mg/dL Creatinine 1.1 mg/dL Estimated GFR (Cockcroft-Gault) 62.9 BUN/Creatinine Ratio 6 Glucose Level 120 mg/dL Calcium Level 8.9 mg/dL Magnesium Level 2.2 mg/dL Total Bilirubin 0.2 mg/dL Aspartate Amino Transf (AST/SGOT) 14 U/L Alanine Aminotransferase (ALT/SGPT) 12 U/L Alkaline Phosphatase 102 U/L Total Protein 7.9 g/dL Albumin 3.8 g/dL Albumin/Globulin Ratio 0.9 White Blood Count 9.5 x10^3/uL Red Blood Count 4.66 x10^6/uL Hemoglobin 12.7 g/dL Hematocrit 38.4 % Mean Corpuscular Volume 82 fL Mean Corpuscular Hemoglobin 27 pg Mean Corpuscular Hemoglobin Concent 33 g/dL Red Cell Distribution Width 15.4 % Platelet Count 258 x10^3/uL Neutrophils (%) (Auto) 87 % Lymphocytes (%) (Auto) 9 % Monocytes (%) (Auto) 3 % Eosinophils (%) (Auto) 0 % Basophils (%) (Auto) 0 % Neutrophils # (Auto) 8.3 x10^3/uL Lymphocytes # (Auto) 0.9 x10^3/uL Monocytes # (Auto) 0.3 x10^3/uL Eosinophils # (Auto) 0.0 x10^3/uL Basophils # (Auto) 0.0 x10^3/uL Segmented Neutrophils % 88 % Lymphocytes % 10 % Monocytes % 2 % Platelet Estimate Adequate Current Medications Medications (Trade) Dose Ordered Sig/Alka Route PRN Reason Start Time Stop Time Status Last Admin Dose Admin Morphine Sulfate (Morphine Sulfate) 4 mg 1X ONCE IV 09/17/20 13:15 09/17/20 13:16 DC 09/17/20 14:30 Ondansetron HCl (Zofran) 4 mg 1X ONCE IVP 09/17/20 13:15 09/17/20 13:16 DC 09/17/20 14:30 Ketorolac Tromethamine (Toradol 30mg Vial) 30 mg 1X ONCE IVP 09/17/20 14:15 09/17/20 14:16 DC 09/17/20 14:30 Morphine Sulfate (Morphine Sulfate) 4 mg 1X ONCE IV 09/17/20 16:30 09/17/20 16:31 DC 09/17/20 16:54 EKG: EKG: [] Radiology/Procedures: Radiology/Procedures: [][facility] [address] [place] [address] IMAGING REPORT Signed PATIENT: PHILLIP GONZALEZ LACCOUNT: [id number] : 1965 LOCATION: ER AGE: 55 SEX: F EXAM STATUS: REG ER ORD. PHYSICIAN: ARNOLD SEALS DO REASON: SOA PROCEDURE: CHEST AP ONLY EXAM: Chest, single view. HISTORY: Shortness of air. COMPARISON: 07/04/2019 FINDINGS: A frontal view of the chest is obtained. There is no infiltrate, effusion or pneumothorax. The heart is normal in size. IMPRESSION: No acute pulmonary finding. Electronically signed by: Nella Block MD (09/17/2020 1:34 PM) [facility] DICTATED and SIGNED BY: NELLA BLOCK MD DATE: 09/17/20 [id number] [facility] [address] [place] [address] IMAGING REPORT Signed PATIENT: PHILLIP GONZALEZ LACCOUNT: [id number] : 1965 LOCATION: ER AGE: 55 SEX: F EXAM STATUS: REG ER ORD. PHYSICIAN: ARNOLD SEALS DO REASON: LEFT FLANK PAIN FOR 2 DAYS PROCEDURE: CT ABDOMEN PELVIS WO CONTRAST EXAM: Abdomen and pelvis CT without intravenous contrast. HISTORY: Flank pain. TECHNIQUE: Computed tomographic images of the abdomen and pelvis were obtained without contrast. Multiplanar reformatting was performed. *One or more of the following individualized dose reduction techniques were utilized for this examination: 1. Automated exposure control. 2. Adjustment of the mA and/or kV according to patient size. 3. Use of iterative reconstruction technique. COMPARISON: None. FINDINGS: Evaluation of the lower thorax demonstrates no infiltrate or pleural effusion. There is a small pericardial effusion, partially included on the [id number]. There is a tiny hiatal hernia. No hepatic lesion is seen. The gallbladder, pancreas, spleen and adrenal glands are unremarkable. There is mild left hydronephrosis and hydroureter extending to an obstructing 5 mm stone within the distal ureter solid proximal to the ureterovesical junction. There is a 3 mm nonobstructing stone within the left kidney. There is no suspicious renal lesion. There is mild right renal cortical thinning. There is no appendicitis. There is no bowel obstruction. The uterus is absent. There is suspected pelvic floor relaxation. There is no lymphadenopathy. There is no suspicious osseous lesion. IMPRESSION: 1. Mild left hydronephrosis and hydroureter secondary to an obstructing 5 mm stone within the distal ureter. There is also a 3 mm nonobstructing left renal stone. 2. Small pericardial effusion, partially included on the [id number]. Electronically signed by: Nella Block MD (09/17/2020 1:31 PM) [facility] DICTATED and SIGNED BY: NELLA BLOCK MD DATE: 09/17/20 [id number] 0 Course & Med Decision Making: Course & Med Decision Making Pertinent Labs and Imaging studies reviewed. (See chart for details) Patient is a 55-year-old female who presented to ER due to left side abdominal pain, CT scan show ureteral stone. Patient was given pain medication in the ER, she felt much better. Her urine show mild case of urinary tract infection., Patient tolerated PO in the emergency department and was able to ambulate without assistance. No evidence suggesting pyelonephritis , no acute kidney injury present or significant hydronephrosis. Pain controlled at this time. Stone was <6 mm and could pass spontaneously, this was discussed with the patient and they are amenable to trial of stone passage at home. Will give pain control and tamsulosin prescriptions. Hemodynamically stable and afebrile currently. Plan to discharge from the emergency department. Advised to take medications as instructed and drink plenty of fluids. Return precautions discussed with the patient, who understands all instructions and is comfortable with plan of care. Kristopher Disclaimer: Kristopher Disclaimer: This electronic medical record was generated, in whole or in part, using a voice recognition dictation system. Departure Departure Impression: Primary Impression: Kidney stone Additional Impression: UTI (urinary tract infection) Disposition: HOME / SELF CARE / HOMELESS Condition: IMPROVED Referrals: UNKNOWN PCP NAME (PCP) PLEASE CALL [facility] UROLOGY DEPARTMENT FOR FOLLOW UP THIS WEEK. The phone number is [phone] Patient Instructions: Kidney Stones, Urinary Tract Infection Additional Instructions: Thank you for visiting our Emergency Department. We appreciate you trusting us with your care. If any additional problems come up don't hesitate to return to visit us. Please follow up with your primary care provider so they can plan additional care if needed and know about the problem that you had. If symptoms worsen come back to the Emergency Department. Any concerning symptoms that start such as chest pain, shortness of air, weakness or numbness on one side of the body, running high fevers or any other concerning symptoms return to the ER. Scripts Sulfamethoxazole/Trimethoprim (BACTRIM DS TABLET) 1 Each Tablet 1 TAB PO BID for 7 Days, #14 TAB 0 Refills Prov: ARNOLD SEALS DO 09/17/20 Ibuprofen (IBUPROFEN) 600 Mg Tablet 600 MG PO PRN Q8HRS PRN for PAIN, #30 TAB Prov: ARNOLD SEALS DO 09/17/20 Tamsulosin Hcl (FLOMAX) 0.4 Mg Cap.er.24h 1 CAP PO DAILY for 14 Days, #14 CAP 11 Refills Prov: ARNOLD SEALS DO 09/17/20 Hydrocodone/Acetaminophen (Hydrocodone-Acetamin 5-325 mg) 1 Each Tablet 1 EACH PO Q6HRS PRN for PAIN, #20 TAB Prov: ARNOLD SEALS DO 09/17/20 ARNOLD SEALS DO September 17, 2020 13:04
[2020-09-17 13:08] LABS: BILIRUBIN,URINE NEGATIVE (NEG); CLARITY,URINE CLEAR; COLOR,URINE YELLOW; NITRITE,URINE NEGATIVE (NEG); PROTEIN,URINE NEGATIVE (NEG-TRACE); UROBILINOGEN,URINE 0.2 mg/dL (0.2 mg/dL)
[2020-09-17] MEDS ORDERED: ONDANSETRON PF 4 MG/2 ML VIAL. IVP ONE (13:15)
[2020-09-17] MEDS ORDERED: MORPHINE SULFATE 4 MG/ML VIAL. IV ONE ×2 (13:15→16:30)
[2020-09-17 13:22] LABS: BACTERIA,URINE 0 /HPF (0-FEW); WBC,URINE RARE /HPF (0-4)
--- NOTE | 2020-09-17 13:34 | RAD ---
EXAM: Abdomen and pelvis CT without intravenous contrast. HISTORY: Flank pain. TECHNIQUE: Computed tomographic images of the abdomen and pelvis were obtained without contrast. Mult iplanar reformatting was performed. *One or more of the following individualized dose reduction techniques were utilized for this examina tion: 1. Automated exposure control. 2. Adjustment of the mA and/or kV according to patient size. 3. Use of iterative reconstruction technique. COMPARISON: None. FINDINGS: Evaluation of the lower thorax demonstrates no infiltrate or pleural effusion. There is a s mall pericardial effusion, partially included on the [id number]. There is a tiny hiatal hernia. No hepatic lesion is seen. The gallbladder, pancreas, spleen and adrenal glands are unremarkable. There is mild left hydronephrosis and hydroureter extending to an obstructing 5 mm stone within the d istal ureter solid proximal to the ureterovesical junction. There is a 3 mm nonobstructing stone with in the left kidney. There is no suspicious renal lesion. There is mild right renal cortical thinning. There is no appendicitis. There is no bowel obstruction. The uterus is absent. There is suspected pel luis floor relaxation. There is no lymphadenopathy. There is no suspicious osseous lesion. IMPRESSION: 1. Mild left hydronephrosis and hydroureter secondary to an obstructing 5 mm stone within the distal ureter. There is also a 3 mm nonobstructing left renal stone. 2. Small pericardial effusion, partially included on the [id number]. Electronically signed by: Nella Block MD (09/17/2020 1:31 PM) [facility]
--- NOTE | 2020-09-17 13:36 | RAD ---
EXAM: Chest, single view. HISTORY: Shortness of air. COMPARISON: 07/04/2019 FINDINGS: A frontal view of the chest is obtained. There is no infiltrate, effusion or pneumothorax. The heart is normal in size. IMPRESSION: No acute pulmonary finding. Electronically signed by: Nella Block MD (09/17/2020 1:34 PM) [facility]
[2020-09-17 14:09] LABS: CALCIUM 8.9 mg/dL (8.5-10.1); CREATININE 1.1 mg/dL (0.6-1.0); GFR 62.9; POTASSIUM 4.2 mmol/L (3.5-5.1)
[2020-09-17 14:12] LABS: ALBUMIN 3.8 g/dL (3.4-5.0); ALBUMIN/GLOBULIN RATIO 0.9 (1.0-1.7); MAGNESIUM 2.2 mg/dL (1.8-2.4); TOTAL BILIRUBIN 0.2 mg/dL (0.2-1.0); TOTAL PROTEIN 7.9 g/dL (6.4-8.2)
[2020-09-17] MEDS ORDERED: KETOROLAC 30 MG/ML VIAL. IVP ONE (14:15)
[2020-09-17 15:37] LABS: BASO % 0 % (0-3); EOS % 0 % (0-3); HEMATOCRIT 38.4 % (36.0-47.0); HEMOGLOBIN 12.7 g/dL (12.0-15.5); LYMPH # 0.9 x10^3/uL (1.0-4.8); LYMPH % 9 % (24-48); MEAN CORPUSCULAR HEMOGLOBIN 27 pg (25-35); MEAN CORPUSCULAR HGB CONC 33 g/dL (31-37); MEAN CORPUSCULAR VOLUME 82 fL (79-100); MONO # 0.3 x10^3/uL (0.0-1.1); MONO % 3 % (0-9); NEUT # 8.3 x10^3/uL (1.8-7.7); NEUT % 87 % (31-73); PLATELET COUNT 258 x10^3/uL (140-400); RED BLOOD COUNT 4.66 x10^6/uL (3.50-5.40); RED CELL DISTRIBUTION WIDTH 15.4 % (11.5-14.5); WHITE BLOOD COUNT 9.5 x10^3/uL (4.0-11.0)
[2020-09-17 16:15] LABS: % LYMPHS 10 % (24-48); % MONOS 2 % (0-10); % SEGS 88 % (35-66); PLT ESTIMATE ADEQUATE (ADEQUATE)
[2020-09-17] MEDS ORDERED: IBUP-1007 PO (17:13)
[2020-09-17] MEDS ORDERED: HYDR-2759 PO (17:13)
[2020-09-17] MEDS ORDERED: TAMS0.4C97 PO (17:13)
[2020-09-17] MEDS ORDERED: SULF1TAB24 PO (17:13)
[2020-09-17 17:20] VITALS: BP 138/75
== END 2020-09-17 17:30 | disposition home or self-care (01) ==
LOC: ER 12:29
DX: N13.2 Hydronephrosis with renal and ureteral calculous obstruction (principal); N39.0 Urinary tract infection, site not specified; F31.9 Bipolar disorder, unspecified; E11.9 Type 2 diabetes mellitus without complications; Z90.710 Acquired absence of both cervix and uterus; Z88.1 Allergy status to other antibiotic agents
CPT/HCPCS: 36415; 71045; 74176; 80053; 81001; 83735; 85007; 85025; 87086; 96374; 96375; 96376; 99285; J1885; J2270; J2405